=== PATIENT | male | born 1960 | race Caucasian/White ===

== ENCOUNTER → 2016-11-21 | Outpatient (CLI) | payer BC | LOC: BMCIMAGING 13:24 | PROVIDERS: ATTEND Nurse Practitioner Adult Health | DX: M50.021 Cervical disc disorder at C4-C5 level with myelopathy (principal); M50.022 Cervical disc disorder at C5-C6 level with myelopathy; M50.023 Cervical disc disorder at C6-C7 level with myelopathy; M50.03 Cervical disc disorder with myelopathy, cervicothoracic region ==